=== PATIENT | female | born 1975 | race Caucasian/White ===

== ENCOUNTER → 2019-07-05 09:10 | Outpatient (BNVA) | payer OTHER, SELFPAY | PROVIDERS: Family Provider Family Medicine; PCP Family Medicine; Visit Provider Obstetrics & Gynecology | DX: Z12.4 Encounter for screening for malignant neoplasm of cervix (principal) | CPT/HCPCS: 88175 ==

== ENCOUNTER 2019-09-14 12:00 | Outpatient (CLI) | payer OTHER, SELFPAY | END 2019-09-14 12:01 | disposition home or self-care (01) | LOC: SLEEP 09-15 09:17 | PROVIDERS: Family Provider Family Medicine; PCP Family Medicine; Visit Provider Family Medicine | DX: G47.10 Hypersomnia, unspecified (principal) | CPT/HCPCS: G0399 ==

== ENCOUNTER 2019-10-05 08:31 | Outpatient (CLI) | payer OTHER, SELFPAY ==
--- NOTE | 2019-10-05 08:43 | MM_ITS ---
WS: [id number] BILATERAL SCREENING DIGITAL MAMMOGRAM WITH CAD HISTORY: SCREENING COMPARISON: 06/08/2018 and 05/26/2017 Bilateral CC and MLO views submitted. Computer aided detection analyzed. Breast composition: There are scattered areas of fibroglandular density. No suspicious masses, microc alcifications or architectural distortion. Asymmetries and calcifications are stable. No suspicious m asses. MM/[place] [id number] IMPRESSION: BI-RADS: 2-Benign FOLLOW UP: 1 Year Follow-up
== END 2019-10-05 08:32 | disposition home or self-care (01) ==
LOC: RADSHAW 08:33
PROVIDERS: PCP Family Medicine; Visit Provider Family Medicine
DX: Z12.31 Encounter for screening mammogram for malignant neoplasm of breast (principal)
CPT/HCPCS: 77067

== ENCOUNTER 2019-10-13 10:39 | Outpatient (CLI) | payer OTHER, SELFPAY ==
--- NOTE | 2019-10-13 10:49 | XR_ITS ---
WS: [id number] PELVIS: AP VIEW SUBMITTED HISTORY: Psoriatic arthritis COMPARISON: 07/12/2015 Ossifications along the iliolumbar ligaments similar to the prior examination. No fusion across the S I joints. There are mild sclerotic changes along the SI joints with no erosions. Mild narrowing of th e hip joints with osteophytes and hypertrophic bone formation along the superior acetabulum. No osteo penia. Symphysis osteitis pubis. XR/XR pelvis 1-2V* [id number] IMPRESSION: 1. Ossification along the iliolumbar ligament. 2. Minimal sclerosis without fusion or erosions at the SI joints. Similar to .
== END 2019-10-13 10:40 | disposition home or self-care (01) ==
LOC: RAD 10:47
PROVIDERS: PCP Family Medicine; Visit Provider Internal Medicine Rheumatology
DX: L40.50 Arthropathic psoriasis, unspecified (principal); M25.50 Pain in unspecified joint; Z79.899 Other long term (current) drug therapy; Z11.59 Encounter for screening for other viral diseases; Z11.1 Encounter for screening for respiratory tuberculosis; L40.9 Psoriasis, unspecified; R76.8 Other specified abnormal immunological findings in serum
CPT/HCPCS: 36415; 72170; 82306; 85651; 86140; 86480; 86704; 86803; 86812; 87340; 99204

== ENCOUNTER → 2019-11-23 14:57 | Outpatient (BNVA) | payer OTHER, SELFPAY | PROVIDERS: PCP Family Medicine; Visit Provider Internal Medicine Rheumatology | DX: L40.50 Arthropathic psoriasis, unspecified (principal); Z79.899 Other long term (current) drug therapy; R76.8 Other specified abnormal immunological findings in serum; L40.8 Other psoriasis | CPT/HCPCS: 99214 ==

== ENCOUNTER → 2019-11-29 15:49 | Outpatient (BNVA) | payer OTHER, SELFPAY | PROVIDERS: PCP Family Medicine; Visit Provider Internal Medicine Rheumatology | DX: M75.51 Bursitis of right shoulder (principal) | CPT/HCPCS: 20610; J1030 ==

== ENCOUNTER 2020-11-13 14:27 | Outpatient (CLI) | payer OTHER, SELFPAY ==
--- NOTE | 2020-11-13 14:34 | MM_ITS ---
WS: [id number] BILATERAL DIGITAL SCREENING MAMMOGRAPHY WITH CAD CLINICAL INFORMATION: SCREENING HISTORY: Screening mammogram. No current complaints. COMPARISON: October 05, 2019 TECHNIQUE: Bilateral CC and MLO views. FINDINGS: The breasts are composed of heterogeneous fibroglandular density tissue, which can limit the detectio n of small underlying mass lesions. No suspicious mass, asymmetry, calcifications, or architectural d istortion. No evidence of malignancy. A few punctate and eggshell calcifications. MM/[place] [id number] IMPRESSION: BI-RADS: 2-Benign FOLLOW UP: 1 Year Follow-up Recommend return to annual screening mammography.
== END 2020-11-13 14:28 | disposition home or self-care (01) ==
LOC: RADSHAW 14:33
PROVIDERS: PCP Family Medicine; Visit Provider Family Medicine
DX: Z12.31 Encounter for screening mammogram for malignant neoplasm of breast (principal)
CPT/HCPCS: 77067

== ENCOUNTER 2021-11-16 12:09 | Outpatient (CLI) | payer OTHER, SELFPAY ==
--- NOTE | 2021-11-16 12:17 | MM_ITS ---
WS: [id number] BILATERAL 3D TOMOSYNTHESIS DIGITAL SCREENING MAMMOGRAPHY WITH CAD CLINICAL INFORMATION: Z12.39 - Encounter for other screening for malignant neop... HISTORY: Screening mammogram. No current complaints. COMPARISON: November 13, 2020 TECHNIQUE: Bilateral CC and MLO views. FINDINGS: Scattered fibroglandular densities bilaterally. No suspicious focal mass, asymmetry, calcifications, or architectural distortion. No evidence of malignancy. Stable lucent centered and eggshell calcifica tions. MM/[place] [id number] IMPRESSION: BI-RADS: 2-Benign FOLLOW UP: 1 Year Follow-up Recommend return to annual screening mammography.
== END 2021-11-16 12:10 | disposition home or self-care (01) ==
LOC: RAD 12:11
PROVIDERS: PCP Family Medicine; Visit Provider Obstetrics & Gynecology
DX: Z12.31 Encounter for screening mammogram for malignant neoplasm of breast (principal)
CPT/HCPCS: 77063; 77067

== ENCOUNTER → 2022-07-04 10:35 | Outpatient (BNVA) | payer OTHER, SELFPAY | PROVIDERS: PCP Family Medicine; Visit Provider Family Medicine | DX: Z13.220 Encounter for screening for lipoid disorders (principal); E78.1 Pure hyperglyceridemia; Z51.81 Encounter for therapeutic drug level monitoring | CPT/HCPCS: 80053; 80061; 85025 ==

== ENCOUNTER → 2022-08-19 11:17 | Outpatient (BNVA) | payer OTHER, SELFPAY | PROVIDERS: PCP Family Medicine; Visit Provider Obstetrics & Gynecology | DX: N92.6 Irregular menstruation, unspecified (principal); N85.2 Hypertrophy of uterus; D25.9 Leiomyoma of uterus, unspecified; Z13.220 Encounter for screening for lipoid disorders; E78.1 Pure hyperglyceridemia; Z51.81 Encounter for therapeutic drug level monitoring | CPT/HCPCS: 76830; 80053; 80061; 85025 ==

== ENCOUNTER → 2023-04-14 08:31 | Outpatient (BNVA) | payer OTHER, SELFPAY | PROVIDERS: PCP Family Medicine; Visit Provider Family Medicine | DX: R53.81 Other malaise (principal); R53.83 Other fatigue; Z13.220 Encounter for screening for lipoid disorders; R73.09 Other abnormal glucose; Z51.81 Encounter for therapeutic drug level monitoring | CPT/HCPCS: 80053; 80061; 83036; 84439; 84443; 84481; 85025 ==

== ENCOUNTER 2023-04-30 07:56 | Outpatient (CLI) | payer OTHER, SELFPAY ==
--- NOTE | 2023-04-30 08:00 | MM_ITS ---
WS: [id number] BILATERAL SCREENING DIGITAL TOMOSYNTHESIS MAMMOGRAM WITH CAD HISTORY: Screening mammogram COMPARISON: 11/16/2021 and 11/13/2020 Bilateral CC and MLO views with tomosynthesis and synthetic mammography submitted. Computer aided det ection analyzed. Breast composition: There are scattered areas of fibroglandular density. No suspicious masses, microc alcifications or architectural distortion. Benign calcifications in each breast. IMPRESSION: MM/[place] [id number] BI-RADS: 2-Benign FOLLOW UP: 1 Year Follow-up
== END 2023-04-30 07:57 | disposition home or self-care (01) ==
LOC: RAD 07:56
PROVIDERS: PCP Family Medicine; Visit Provider Family Medicine
DX: Z12.31 Encounter for screening mammogram for malignant neoplasm of breast (principal)
CPT/HCPCS: 77063; 77067

== ENCOUNTER → 2023-07-22 11:22 | Outpatient (BNVA) | payer OTHER, SELFPAY | PROVIDERS: PCP Family Medicine; Visit Provider Obstetrics & Gynecology | DX: Z01.419 Encounter for gynecological examination (general) (routine) without abnormal findings (principal) | CPT/HCPCS: 87624 ==

== ENCOUNTER → 2023-08-11 07:54 | Outpatient (BNVA) | payer OTHER, SELFPAY | PROVIDERS: PCP Family Medicine; Visit Provider Obstetrics & Gynecology | DX: N92.6 Irregular menstruation, unspecified (principal); D25.9 Leiomyoma of uterus, unspecified | CPT/HCPCS: 76830 ==

== ENCOUNTER 2023-08-14 06:36 | Day surgery (SDC) | payer OTHER, SELFPAY ==
--- NOTE | 2023-08-14 06:04 | W.PM.OPSFHP ---
Same Day Surgery H&P Indication for Procedure/HPI DATE OF PROCEDURE: August 14, 2023 CHIEF COMPLAINT/INDICATIONFOR SURGICAL PROCEDURE: need for screening colonoscopy PREOP DIAGNOSIS: need for screening colonoscopy PLANNED PROCEDURE: Operation Date: 08/14/23 07:40 Proposed Procedures p [id number] colon G0121 screen colon A risk Z12.11(Not Applicable) - Wade Zamudio MD Medications/Allergies* Home Medications Medication Instructions Recorded Confirmed Type apremilast 30 mg tablet (Otezla) 30 mg PO BID 07/05/19 08/12/23 History ustekinumab 90 mg/mL subcutaneous 90 mg SUBCUT .12wks 10/13/19 08/12/23 History syringe (Stelara) calcium citrate 315 mg-vitamin D3 1 tab PO BID 07/04/22 08/12/23 History 5 mcg (200 unit) tablet (Calcium Citrate + D) cyanocobalamin (vitamin B-12) 500 500 mcg PO DAILY 07/04/22 08/12/23 History mcg tablet (Vitamin B-12) multivitamin 1 tab PO DAILY 07/04/22 08/12/23 History thiamine HCl (vitamin B1) 100 mg 100 mg PO DAILY 07/04/22 08/12/23 History tablet gemfibrozil 600 mg tablet 600 mg PO DAILY 04/22/23 08/12/23 History sertraline 50 mg tablet 50 mg PO DAILY 08/12/23 08/12/23 History Allergies/Adverse Reactions Allergy/AdvReac Type Severity Reaction Status Date / Time Penicillins Allergy as a child Verified 07/22/23 08:19 Pertinent History/Comorbid Conditions* Medical History (Updated 08/08/23 @ 00:08 by Callum Collier MD) Subacromial bursitis of right shoulder joint Rheumatoid factor positive Inflammatory arthritis Depression Psoriatic arthritis Psoriasis Hypertension Surgical History (Updated 07/04/22 @ 10:46 by Cody Thompson MD) S/P gastric sleeve procedure History of left knee surgery (~1998) Sledding accident, which resulted in laceration of knee. Repair of injury to knee. Family History (Updated 07/05/19 @ 08:30 by Rere Adler LPN) Diabetes Mother Family/Other aunts Hypercholesteremia Mother Family/Other aunt Breast cancer Family/Other aunt Hypertension Mother Family/Other aunts Thyroid disease Mother Sister Social History Smoking and tobacco/nicotine status: former use of tobacco/nicotine Quit status (tobacco/nicotine): has quit using Year quit tobacco: 1999 Alcohol intake: former Substance/Drug Use: never Pertinent Exam Findings alert, oriented x 3, clear to auscultation bilaterally and regular rate & rhythm Recommendations Surgery/Procedure today Coding Level of Care Code Acute Code for [facility] Job
[2023-08-14 06:56] VITALS: BP 137/89; PULSE 72; RESP 16; TEMP 36.1; O2SAT 96; BMI 36.6
[2023-08-14] MEDS: sodium chloride 0.9% 1,000 ML 30 ML IV (07:02)
--- NOTE | 2023-08-14 07:05 | ANES.PREANE2 ---
Pre-Anesthetic Assessment Height/Weight: Height 1.57 m Weight 90.718 kg Temp Pulse Resp BP Pulse Ox O2 Del Method 97.0 F L 72 16 137/89 96 Room Air 08/14/23 06:56 08/14/23 06:56 08/14/23 06:56 08/14/23 06:56 08/14/23 06:56 08/14/23 06:56 Preop Diagnosis: need for screening colonoscopy Operation Date: 08/14/23 07:40 [place] Procedures p [id number] colon G0121 screen colon A risk Z12.11(Not Applicable) - Wade Zamudio MD Familial anesthetic complications: none Was Beta Mariia taken within 24 hours: Yes Last intake: Intake Last Liquid Date 08/13/23 Last Liquid Time 22:00 Last Solid Date 08/12/23 Last Solid Time 18:00 Social No alcohol and No tobacco Exam alert, oriented x 3, clear to auscultation bilaterally and regular rate & rhythm Airway Submandibular: within normal limits Cervical ROM: within normal limits Mallampati: Class II Dentition: full Pulmonary None reported CV/HEM Hypertension None reported Hepatic None reported GI None reported Metabolic Thyroid Disease [facility] [place] Osteoarthritis/DJD and Rheumatoid Arthritis Neuropsych Depression Anesthetic Plan ASA status: 2 Anesthesia: MAC Medications/Allergies Home Medications Medication Instructions Recorded Confirmed Last Taken Type apremilast 30 mg tablet (Otezla) 30 mg PO BID 07/05/19 08/12/23 08/12/23 History ustekinumab 90 mg/mL subcutaneous 90 mg SUBCUT .12wks 10/13/19 08/14/23 06/27/23 History syringe (Stelara) calcium citrate 315 mg-vitamin D3 1 tab PO BID 07/04/22 08/14/23 08/12/23 History 5 mcg (200 unit) tablet (Calcium Citrate + D) cyanocobalamin (vitamin B-12) 500 500 mcg PO DAILY 07/04/22 08/14/23 08/12/23 History mcg tablet (Vitamin B-12) multivitamin 1 tab PO DAILY 07/04/22 08/14/23 08/12/23 History thiamine HCl (vitamin B1) 100 mg 100 mg PO DAILY 07/04/22 08/14/23 08/12/23 History tablet metoprolol succinate 25 mg 25 mg PO DAILY #90 tabs 11/22/22 08/14/23 08/14/23 Rx tablet,extended release 24 hr ferrous sulfate 325 mg (65 mg 325 mg PO BID #60 tabs 04/22/23 08/14/23 08/12/23 Rx iron) tablet gemfibrozil 600 mg tablet 600 mg PO DAILY 04/22/23 08/14/23 08/12/23 History levothyroxine 50 mcg tablet 50 mcg PO DAILY #30 tabs 04/22/23 08/14/23 08/12/23 Rx sertraline 50 mg tablet 50 mg PO DAILY 08/12/23 08/14/23 08/12/23 History Allergies Allergy/AdvReac Type Severity Reaction Status Date / Time Penicillins Allergy as a child Verified 07/22/23 08:19 Current Medications Generic Name Dose Route Start Last Admin Trade Name Freq PRN Reason Stop Dose Admin Sodium Chloride 1,000 mls @ 30 mls/hr 08/14/23 06:45 08/14/23 07:02 Sodium Chloride 0.9% IV 30 mls/hr .Q24H GIL Administration PFSH Anesthesia Medical History Subacromial bursitis of right shoulder joint Rheumatoid factor positive Inflammatory arthritis Depression Psoriatic arthritis Psoriasis Hypertension Surgical History S/P gastric sleeve procedure History of left knee surgery (~1998) Sledding accident, which resulted in laceration of knee. Repair of injury to knee. Family History Mother Diabetes Hypertension Hypercholesteremia Thyroid disease Family/Other Diabetes aunts Hypertension aunts Hypercholesteremia aunt Breast cancer aunt Sister Thyroid disease Social History Smoking and tobacco/nicotine status: former use of tobacco/nicotine Quit status (tobacco/nicotine): has quit using Year quit tobacco: 1999 Alcohol intake: former Substance/Drug Use: never Data Anesthesia Cardiac Studies: No Data to Display
[2023-08-14 07:59] VITALS: BP 103/71; PULSE 68; RESP 18; TEMP 36.3; O2SAT 93
[2023-08-14 08:11] VITALS: BP 119/78; PULSE 75; RESP 18; TEMP 36.3; O2SAT 98
--- NOTE | 2023-08-14 08:25 | ANE.PACU2 ---
Inpatient post-anesthesia follow up: Airway intact: Yes Vital signs: Temperature 97.3 F Pulse Rate 75 Respiratory Rate 18 Blood Pressure 119/78 Pulse Oximetry 98 Oxygen Delivery Me thod Room Air Oxygen Flow Rate Fraction of Inspir ed Oxygen Hydration adequate: Yes Nausea and vomiting: No Pain level: 1 Mental status: Baseline
== END 2023-08-14 08:26 | disposition home or self-care (01) ==
PROVIDERS: PCP Family Medicine; Visit Provider Surgery
PROC: 0DJD8ZZ Inspection of Lower Intestinal Tract, Via Natural or Artificial Opening Endoscopic (ICD-10-PCS; CPT 45378; principal; 2023-08-14 07:40)
DX: Z12.11 Encounter for screening for malignant neoplasm of colon (principal); I10 Essential (primary) hypertension; Z87.891 Personal history of nicotine dependence; K57.30 Diverticulosis of large intestine without perforation or abscess without bleeding; K63.5 Polyp of colon; M06.9 Rheumatoid arthritis, unspecified
CPT/HCPCS: 45380; 88305; J2704; J3490; J7030

== ENCOUNTER → 2024-04-23 08:16 | Outpatient (BNVA) | payer OTHER, SELFPAY | PROVIDERS: PCP Family Medicine; Visit Provider Family Medicine | DX: Z00.00 Encounter for general adult medical examination without abnormal findings (principal); Z90.3 Acquired absence of stomach [part of]; D64.9 Anemia, unspecified; Z79.899 Other long term (current) drug therapy; L40.50 Arthropathic psoriasis, unspecified; E03.9 Hypothyroidism, unspecified; Z51.81 Encounter for therapeutic drug level monitoring; E55.9 Vitamin D deficiency, unspecified; Z13.6 Encounter for screening for cardiovascular disorders | CPT/HCPCS: 80053; 80061; 82306; 82525; 82607; 83540; 84425; 84439; 84443; 84597; 85025; 86480 ==

== ENCOUNTER 2024-04-30 12:37 | Outpatient (CLI) | payer OTHER, SELFPAY ==
--- NOTE | 2024-04-30 12:40 | MM_ITS ---
WS: [id number] BILATERAL 3D TOMOSYNTHESIS DIGITAL SCREENING MAMMOGRAPHY WITH CAD CLINICAL INFORMATION: Screening mammogram HISTORY: Screening mammogram. No current complaints. COMPARISON: 2023 TECHNIQUE: Bilateral CC and MLO views. FINDINGS: The breasts are composed of heterogeneous fibroglandular density tissue, which can limit the detection of small underlying mass lesions. No suspicious mass, asymmetry, calcifications, or architectural distortion. No evidence of malignancy. Incidental punctate and lucent centered calcifications. MM/MM [facility] tomosynthesis [id number] IMPRESSION: DENSITY: The breasts are heterogeneously dense, which may obscure small masses. BI-RADS: 2 - Benign FOLLOW UP: 1 Year Follow-up Recommend return to annual screening mammography.
== END 2024-04-30 12:38 | disposition home or self-care (01) ==
PROVIDERS: PCP Family Medicine; Visit Provider Family Medicine
DX: Z12.31 Encounter for screening mammogram for malignant neoplasm of breast (principal); R92.333 Mammographic heterogeneous density, bilateral breasts; R92.1 Mammographic calcification found on diagnostic imaging of breast
CPT/HCPCS: 77063; 77067; 80053; 80061; 82306; 82525; 82607; 83540; 84425; 84439; 84443; 84597; 85025; 86480

== ENCOUNTER → 2024-08-18 14:59 | Outpatient (BNVA) | payer OTHER, SELFPAY | PROVIDERS: PCP Family Medicine; Visit Provider Obstetrics & Gynecology | DX: N92.0 Excessive and frequent menstruation with regular cycle (principal) | CPT/HCPCS: 81025; 88305 ==